=== PATIENT | male | born 1960 | race Caucasian/White ===

== ENCOUNTER 2024-01-11 06:09 | Observation (INO) ==
[~2024-01-11 06:09] MED LIST: Metoclopramide 5 MG/ML VIAL (10 mg) IV PRN; NS 0.45% 1000 ml BAG 1,000 ML IV SCH; Naloxone 0.4 mg VIAL 0.4 mg/ml 1 ml VIAL IV PRN; Ondansetron 4 mg VIAL 2 MG/ML 2 ml VIAL IV PRN; fentaNYL 100 mcg/2 ml 50 MCG/ML VIAL IV PRN
[2024-01-11 06:48] LABS: Rapid COVID-19 Molecular Undetected (Undetected)
[2024-01-11] MEDS: Scopolamine 1 mg/72hr PATCH TRANSDERM ONE (06:48)
[2024-01-11] MEDS: Buffered Lidocaine 1% SYRIN 1 ml INTRADERM ONE (06:48)
[2024-01-11] MEDS: Acetaminophen IV 1 GM/100ML 1,000 MG/100 ML BAG IV ONE (06:48)
[2024-01-11] MEDS ORDERED: Sevoflurane BOTTLE ONE (07:01)
[2024-01-11] MEDS: Lactated Ringers 1000 ml BAG 1,000 ML IV SCH ×2 (07:02→16:50)
[2024-01-11] MEDS ORDERED: Midazolam 2 mg/2 ml VIAL 1 mg/ml 2 ml VIAL (2 mg) ONE (07:14)
[2024-01-11] MEDS ORDERED: fentaNYL 100 mcg/2 ml 50 MCG/ML VIAL ONE ×2 (07:14→10:39)
[2024-01-11] MEDS ORDERED: Ondansetron 4 mg VIAL 2 MG/ML 2 ml VIAL ONE (07:15)
[2024-01-11] MEDS ORDERED: Dexamethasone IV 4 MG/ML VIAL 1 ml VIAL ONE ×2 (07:15→07:36)
[2024-01-11] MEDS ORDERED: Propofol 10 MG/ML 20 ML BTL ONE (07:15)
[2024-01-11] MEDS ORDERED: Lidocaine 2% PF 5 ML VIAL ONE (07:15)
[2024-01-11] MEDS ORDERED: ROPIVACAINE 5 MG/ML 30 ML BTL (0.5%) ONE (07:36)
[2024-01-11] MEDS ORDERED: Phenylephrine IV 10 MG/ML 1 ml VIAL ONE (11:08)
[2024-01-11] MEDS ORDERED: Tranexamic Acid 1 GM/100ML BAG 2,000 MG/200 ML BAG IV ONE (11:13)
[2024-01-11] MEDS ORDERED: HYDROmorphone 0.5 MG/0.5 ML SYRINGE ONE ×4 (11:17→14:53)
[2024-01-11] MEDS ORDERED: Vancomycin 1,000 MG VIAL ONE (14:20)
[2024-01-11] MEDS ORDERED: Morphine 2 MG/ML SYRINGE IV PRN (15:12)
[2024-01-11] MEDS ORDERED: Ondansetron 4 mg VIAL 2 MG/ML 2 ml VIAL IV PRN (15:12)
[2024-01-11] MEDS ORDERED: Ondansetron ODT 4 mg TAB 4 MG TAB PO PRN (15:12)
[2024-01-11] MEDS ORDERED: Magnesium Hydroxide LIQ 30 ML UDC PO PRN (15:12)
[2024-01-11] MEDS ORDERED: Lactulose 30 ml UDC PO PRN (15:12)
[2024-01-11] MEDS ORDERED: Albuterol HFA INHALER 8 gm MDI INH PRN (17:39)
[2024-01-11] MEDS: ceFAZolin 1 GM ADVAN 1 GM in NS 0.9% 50 ML 50 ML IVPB SCH (18:40)
[2024-01-11] MEDS: Mometasone/Formoter 200/5 MDI INH SCH (20:37)
[2024-01-11] MEDS: Venlafaxine XR 75 mg PO SCH (21:18)
[2024-01-11] MEDS: Magnesium Hydroxide LIQ 30 ML UDC PO SCH (21:19)
[2024-01-12 04:49] LABS: Hematocrit 33.9 % (38-53); Hemoglobin 11.8 g/dL (13.2-16.3); Mean Platelet Volume 6.8 fL (7.5-11.2); Platelet Count 216 10^3/uL (150-450)
[2024-01-12 05:27] LABS: Calcium 7.8 mg/dL (8.6-10.3); Creatinine, Serum 1.51 mg/dL (0.67-1.17); Potassium 4.4 mmol/L (3.5-5.0); eGFR CKD-EPI 51.6 (>60)
[2024-01-12] MEDS: Vitamin THERAPEUTIC TAB PO SCH (09:07)
[2024-01-12] MEDS: CALCIUM GLUCONATE 1GM/50ML NS 1 GM/50 ML BAG IV ONE (13:20)
[2024-01-12 14:09] VITALS: BP 143/78
== END 2024-01-12 15:05 | disposition home or self-care (01) ==
LOC: AA 06:09 → INTOOBSV 06:09 → SSU 15:12
PROVIDERS: ADMIT Orthopaedic Surgery; ATTEND Orthopaedic Surgery